=== PATIENT | male | born 1940 | race Caucasian/White ===

== ENCOUNTER 2020-08-07 09:13 | Outpatient (CLI) | payer MEDICARE, OTHER | END 2020-08-07 09:14 | disposition home or self-care (01) | LOC: DI 09:13 | PROVIDERS: ATTEND Internal Medicine | DX: I35.8 Other nonrheumatic aortic valve disorders (principal); I51.7 Cardiomegaly | CPT/HCPCS: 93306 ==

== ENCOUNTER 2021-04-23 18:37 | Outpatient (CLI) | payer MEDICARE, OTHER | END 2021-04-23 18:38 | disposition critical access hospital (66) | LOC: EMS 18:37 | DX: R10.9 Unspecified abdominal pain (principal); R11.2 Nausea with vomiting, unspecified; R61 Generalized hyperhidrosis | CPT/HCPCS: A0425; A0427 ==

== ENCOUNTER 2021-04-23 18:58 | Observation (INO) | payer MEDICARE, OTHER ==
--- NOTE | 2021-04-23 19:09 | ED Physician Documentation ---
PD HPI ABD PAIN - Stated complaint Stated Complaint: ABD PAIN, N/V - History obtained from History obtained from: Patient - History of Present Illness Timing - onset: Today (this morning at 7 am, abrupt onset RUQ abd pain, associated with nausea and episodic vomiting throuth the day. Less urine output and it seemedd dark to him.) Timing - duration: Days (1) Timing - details: Abrupt onset, Still present Quality: Cramping, Aching, Pain Location: RUQ, Epigastric Radiation: No: Chest, Lower back, Right flank Improved by: No: Vomiting Worsened by: Eating, Palpation. No: Breathing Associated symptoms: Nausea, Vomiting. No: Fever, Diarrhea, Constipation, Dysuria (but having hesitancy with urination) Similar symptoms before: Has not had sx before Recently seen: Not recently seen Review of Systems Constitutional: denies: Fever, Chills Nose: denies: Rhinorrhea / runny nose, Congestion Throat: denies: Sore throat Respiratory: denies: Cough GI: reports: Abdominal Pain (just today), Nausea, Vomiting. denies: Constipation, Diarrhea : reports: Hesitancy Skin: denies: Rash, Lesions Musculoskeletal: denies: Neck pain, Back pain Neurologic: reports: Generalized weakness. denies: Focal weakness, Near syncope, Altered mental status Psychiatric: denies: Anxiety PD PAST MEDICAL HISTORY - Past Medical History Cardiovascular: None (denies HTN, with BP usually 120-130 systlic. ) Respiratory: None Neuro: None Endocrine/Autoimmune: None - Allergies Allergies/Adverse Reactions: Allergies Allergy/AdvReac Type Severity Reaction Status Date / Time No Known Drug Allergies Allergy Verified 04/23/21 19:09 PD ED PE NORMAL - Vitals Vital signs reviewed: Yes - General General: Alert and oriented X 3, Well developed/nourished, Other (appears in pain right upper abd. ) - HEENT HEENT: PERRL (minimally icteric. ), Pharynx benign - Neck Neck: Supple, no meningeal sign, No adenopathy - Cardiac Cardiac: RRR, No murmur - Respiratory Respiratory: Clear bilaterally, Other (no chestwall tenderness.) - Abdomen Abdomen: Non distended, No organomegaly, Other (He is moderately tender with some guarding in the right upper quadrant. There is no percussion or rebound tenderness. Bowel sounds are diminished. The lower abdomen has a bit of full ness in the suprapubic area but no tender.). No: Normal bowel sounds (diminished) - Male Male : Deferred - Rectal Rectal: Deferred - Back Back: No CVA TTP - Derm Derm: Normal color, Warm and dry - Extremities Extremities: No tenderness to palpate, Normal ROM s pain, No edema, No calf tenderness / cord - Neuro Neuro: Alert and oriented X 3, No motor deficit, Normal speech Results - Vitals Vitals: Vital Signs - 24 hr 04/23/21 04/23/21 04/23/21 19:02 20:24 21:00 Temperature 36.0 C L Heart Rate 83 83 78 Respiratory 20 18 18 Rate Blood Pressure 207/75 H 190/96 H 210/109 H O2 Saturation 98 95 97 04/23/21 22:30 Temperature Heart Rate 81 Respiratory 18 Rate Blood Pressure 209/124 H O2 Saturation 96 Oxygen O2 Source Room air - Labs Labs: Laboratory Tests 04/23/21 04/23/21 04/23/21 19:24 19:24 19:30 WBC 7.8 RBC 4.96 Hgb 15.3 Hct 45.9 MCV 92.5 MCH 30.8 MCHC 33.3 RDW 13.3 Plt Count 154 MPV 9.5 Neut # (Auto) 6.9 H Lymph # (Auto) 0.6 L Bland # (Auto) 0.3 Eos # (Auto) 0.0 Baso # (Auto) 0.0 Absolute Nucleated RBC 0.00 Nucleated RBC % 0.0 Sodium 133 L Potassium 4.2 Chloride 95 L Carbon Dioxide 27 Anion Gap 11.0 BUN 17 Creatinine 1.1 Estimated GFR (MDRD) 64 L Glucose 239 H Calcium 9.0 Total Bilirubin 3.3 H AST 373 H ALT 332 H Alkaline Phosphatase 204 H Total Protein 7.7 Albumin 4.4 Globulin 3.3 Albumin/Globulin Ratio 1.3 Lipase 93 H Urine Color YELLOW Urine Clarity CLEAR Urine pH 7.0 Ur Specific [place] 1.025 Urine Protein 100 H Urine Glucose (UA) 250 H Urine Ketones 40 H Urine Occult Blood SMALL H Urine Nitrite NEGATIVE Urine Bilirubin NEGATIVE Urine Urobilinogen 0.2 (NORMAL) Ur Leukocyte Esterase NEGATIVE Urine RBC 6-10 H Urine WBC 0-3 Ur Squamous Epith Cells NONE SEEN Urine Bacteria None Seen Ur Microscopic Review INDICATED Urine Culture Comments NOT INDICATED - Rads (name of study) abd U/S Radiology: Prelim report reviewed (distended GB. CBD with normal size. Concern for poorly seem area near fundus of GB, suggested other imaging. ), See rad report abd CT Radiology: Prelim report reviewed (No masses. Corroborates distended GB with stone vs sludge seen, normal CBD.), See rad report PD MEDICAL DECISION MAKING - ED course Complexity details: reviewed results (No obvious ductal dilatation. There is distention of the gallbladder with some sludge or stone near the neck. Is elevated LFTs and lipase.), re-evaluated patient (pain improved with IV meds. BP remained eleveated but he states no history of HTN and BP typical 120-130 systolic, so I would allow BP to be high for now. ), considered differential (RUQ abd pain onset abrupt this AM. Seems likely hepatobiliary or consider pancreatic. He also complained of not getting urine out today, but is not having pain suprapubic. ), d/w patient, d/w marketing operations consultant (Talked with Dr. Boateng, who agreed to have patient in hospital for further care. ) ED course: Patient states he was unable to give a urine sample and was starting to feel bladder fullness. Bladder scanner showed a large amount so Grace catheter was placed with 700 mL out. This did not improve or affect his right upper quadrant pain and is still feeling tender there. Departure - Departure Disposition: ED Place in Observation Clinical Impression: RUQ abdominal pain, Elevated LFTs, Enlarged gallbladder, Acute urinary retention Nausea and vomiting Qualifiers: Vomiting type: bilious vomiting Qualified Code(s): R11.14 - Bilious vomiting Condition: Stable Record reviewed to determine appropriate education?: Yes Discharge Date/Time: 04/24/21 01:38
[2021-04-23] MEDS ORDERED: SODIUM CHLORIDE 0.9% 1,000 ML IV STA ×2 (19:14)
[2021-04-23] MEDS ORDERED: KETOROLAC 15 MG/ML VIAL IVP STA (19:14)
[2021-04-23] MEDS ORDERED: FAMOTIDINE 20 MG/2 ML VIAL IVP STA (19:15)
[2021-04-23 19:29] LABS: BASOPHILS % (AUTO) 0.3 %; HCT - HEMATOCRIT 45.9 % (42.0-52.0); HGB - HEMOGLOBIN 15.3 g/dL (14.0-18.0); LYMPHOCYTES # (AUTO) 0.6 10^3/uL (1.5-3.5); MEAN CORPUSCULAR HEMOGLOBIN 30.8 pg (27.0-31.0); MEAN CORPUSCULAR HGB CONC 33.3 g/dL (32.0-36.0); MEAN CORPUSCULAR VOLUME 92.5 fL (80.0-94.0); MEAN PLATELET VOLUME 9.5 fL (7.4-11.4); MONOCYTES # (AUTO) 0.3 10^3/uL (0.0-1.0); MONOCYTES % (AUTO) 3.8 %; NEUTROPHILS # (AUTO) 6.9 10^3/uL (1.5-6.6); NEUTROPHILS % (AUTO) 88.5 %; PLT - PLATELET COUNT 154 10^3/uL (130-450); RED BLOOD COUNT 4.96 10^6/uL (4.70-6.10); RED CELL DISTRIBUTION WIDTH 13.3 % (12.0-15.0); WHITE BLOOD COUNT 7.8 x10^3/uL (4.8-10.8)
[2021-04-23 19:38] LABS: BILIRUBIN,URINE NEGATIVE (NEGATIVE); GLUCOSE, URINE (UA) 250 mg/dL (NEGATIVE); KETONES,URINE (UA) 40 mg/dL (NEGATIVE); LEUKOCYTE ESTERASE, URINE NEGATIVE (NEGATIVE); NITRITE,URINE NEGATIVE (NEGATIVE); OCCULT BLOOD,URINE SMALL (NEGATIVE); PROTEIN,URINE 100 mg/dL (NEGATIVE); UROBILINOGEN,URINE 0.2 (NORMAL) E.U./dL (NORMAL)
[2021-04-23 19:40] LABS: CLARITY,URINE CLEAR (CLEAR)
[2021-04-23 19:44] LABS: WBC,URINE 0-3 /HPF (0-3)
[2021-04-23 19:45] LABS: BACTERIA,URINE None Seen /HPF (None Seen); SQUAMOUS EPITHELIAL CELL,UR NONE SEEN (<= Few)
[2021-04-23 19:47] LABS: ALBUMIN 4.4 g/dL (3.2-5.5); ALBUMIN/GLOBULIN RATIO 1.3 (1.0-2.2); BILIRUBIN,TOTAL 3.3 mg/dL (0.2-1.0); CREATININE 1.1 mg/dL (0.6-1.2); POTASSIUM 4.2 mmol/L (3.5-5.0); TOTAL PROTEIN 7.7 g/dL (6.7-8.2)
--- NOTE | 2021-04-23 21:55 | Ultrasound Report ---
PROCEDURE: Abdomen Limited INDICATIONS: RUQ abd pain and vomiting since AM TECHNIQUE: Real-time focused scanning was performed of the right upper quadrant, with image documentation. COMPARISON: None. FINDINGS: The liver appears normal in overall size. There is coarse sonographic echotexture of the visualized l iver suggestive of fatty infiltration but evaluation is limited due to patient's limited ability to b reath-hold. The gallbladder is distended with a lobulated slightly hyperechoic nongravity dependent filling defec t in the fundus measuring approximately 3.5 x 3.7 cm. No definite internal vascularity is demonstrate d within this region on color Doppler interrogation. No gallbladder wall thickening or shadowing gall stones. No pericholecystic fluid. No definite intra or extra hepatic biliary ductal dilatation. The distal common bile duct measures ap proximately 0.4 cm but is not well visualized. The pancreas was not well seen. Right kidney measures 11.3 cm. No hydronephrosis. There is a right renal cyst measuring up to 4.6 x 4 .7 x 4.2 cm. IMPRESSION: 1. Lobulated nongravity dependent filling defect within the gallbladder fundus without definite inter nal vascularity on color Doppler interrogation. The findings likely represent loculated biliary sludg e. However, an intraluminal gallbladder mass such as from gallbladder carcinoma cannot be excluded. C onsider follow-up evaluation with a contrast-enhanced MRI. 2. No definite evidence of cholecystitis. 3. No biliary ductal dilatation identified. Reviewed by: Alli Del Toro MD on 04/23/2021 9:53 PM PDT Approved by: Alli Del Toro MD on 04/23/2021 9:53 PM PDT Station ID: [id number]
[2021-04-23] MEDS ORDERED: IOVERSOL 320 100 ML VIAL IVP ONE ×2 (22:53→23:42)
[2021-04-24] MEDS ORDERED: ONDANSETRON 4 MG/2 ML VIAL IVP STA (00:57)
[2021-04-24] MEDS ORDERED: HYDROmorphone 1 MG/ML CARPUJECT IVP STA (00:57)
[2021-04-24] MEDS ORDERED: ACETAMINOPHEN 325 MG TABLET PO PRN (01:06)
[2021-04-24] MEDS ORDERED: ONDANSETRON ODT 4 MG TABLET TL PRN (01:06)
[2021-04-24] MEDS ORDERED: ONDANSETRON 4 MG/2 ML VIAL IVP PRN (01:06)
[2021-04-24] MEDS ORDERED: HYDROcod/ACETAM 5/325 MG TABLET PO PRN (01:06)
[2021-04-24] MEDS ORDERED: HYDROmorphone 0.5 MG/0.5 ML SYRINGE IVP PRN (01:06)
[2021-04-24] MEDS ORDERED: PROCHLORPERAZINE 10 MG/2 ML VIAL IVP PRN (01:06)
[2021-04-24] MEDS ORDERED: ceFAZolin 2 GM in SODIUM CHLORIDE 0.9% MINIBAG 100 ML IV STA (01:15)
[2021-04-24] MEDS ORDERED: hydrALAZINE 10 MG TABLET PO PRN (01:21)
[2021-04-24 02:23] LABS: B. PARAPERTUSSIS- RESP PCR PAN NOT DETECTED; B. PERTUSSIS- RESP PCR PANEL NOT DETECTED; C. PNEUMONIAE- RESP PCR PANEL NOT DETECTED; CORONAVIRUS 229E-RESP PCR NOT DETECTED; CORONAVIRUS HKU1-RESP PCR NOT DETECTED; CORONAVIRUS NL63-RESP PCR NOT DETECTED; CORONAVIRUS OC43-RESP PCR NOT DETECTED; HUMAN METAPNEUMOVIRUS NOT DETECTED; INFLUENZA A- RESP PCR PANEL NOT DETECTED; INFLUENZA B - RESP PCR PANEL NOT DETECTED; M. PNEUMONIAE- RESP PCR PANEL NOT DETECTED; PARAINFLUENZA VIRUS 1 NOT DETECTED; PARAINFLUENZA VIRUS 2 NOT DETECTED; PARAINFLUENZA VIRUS 3 NOT DETECTED; PARAINFLUENZA VIRUS 4 NOT DETECTED; RHINOVIRUS/ENTEROVIRUS NOT DETECTED; RSV- RESP PCR PANEL NOT DETECTED; SARS-CoV-2 -RESP PCR PANEL NOT DETECTED
[2021-04-24] MEDS: SODIUM CHLORIDE FLUSH 0.9% 10 ML SYRINGE IVP PRN ×2 (02:35→03:12)
[2021-04-24] MEDS: D5.45NS W/20 MEQ KCL 1,000 ML IV SCH ×2 (02:36→14:22)
[2021-04-24] MEDS: METOPROLOL TARTRATE 50 MG TABLET PO SCH ×2 (02:48→08:49)
[2021-04-24] MEDS: metroNIDAZOLE 500 MG/100 ML 500 MG/100 ML BAG IV SCH ×2 (03:12→10:06)
[2021-04-24 06:11] LABS: ALBUMIN 3.7 g/dL (3.2-5.5); ALBUMIN/GLOBULIN RATIO 1.2 (1.0-2.2); BILIRUBIN,TOTAL 2.6 mg/dL (0.2-1.0); CALCIUM 8.3 mg/dL (8.5-10.3); CREATININE 0.9 mg/dL (0.6-1.2); POTASSIUM 3.8 mmol/L (3.5-5.0); TOTAL PROTEIN 6.7 g/dL (6.7-8.2)
--- NOTE | 2021-04-24 07:53 | CT Report ---
PROCEDURE: Abdomen/Pelvis W INDICATIONS: right upper abd pain today; elevated LFTs CONTRAST: IV CONTRAST: Optiray 320 ml: 100 PO CONTRAST: *NO PO CONTRAST TECHNIQUE: After the administration of intravenous contrast, 5 mm thick sections acquired from the diaphragms to the symphysis. 5 mm thick coronal and sagittal reformats were acquired. For radiation dose reducti on, the following was used: automated exposure control, adjustment of mA and/or kV according to yung ent size. COMPARISON: Right upper quadrant ultrasound dated 04/23/2021. FINDINGS: Image quality: Excellent. ABDOMEN: Lung bases: Lung bases are clear. Heart size is normal. Solid organs: Liver and spleen are normal in size and enhancement. Gallbladder is distended and con tains sludge. No gallbladder wall thickening. Biliary system is non dilated. Pancreas enhances norm ally. No adrenal nodules. Kidneys demonstrate normal size and enhancement, without hydronephrosis. Peritoneum and bowel: Bowel loops demonstrate normal wall thickness and caliber. No free fluid or a ir. Moderate fecal debris in the cecum. Nodes and vessels: No retroperitoneal or mesenteric adenopathy by size criteria. Aorta and inferior vena cava are normal in size. Miscellaneous: No ventral hernias. PELVIS: Genitourinary: Markedly enlarged, edematous appearing prostate. A Grace catheter is present in the b ladder. Diffuse bladder wall thickening. Miscellaneous: No inguinal hernias or adenopathy. Bones: No suspicious bony lesions. No vertebral body compression fractures. IMPRESSION: 1. Distended gallbladder filled with sludge. 2. Markedly enlarged, edematous prostate. Grace catheter decompresses the bladder, which has bladder wall thickening. 3. Moderate cecal fecal debris. A preliminary report with the above findings was provided at the time of the study by [facility]. Reviewed by: Tucker Gudino MD on 04/24/2021 6:52 AM KAL Approved by: Tucker Gudino MD on 04/24/2021 6:52 AM KAL Station ID: [id number]
[2021-04-24] MEDS ORDERED: FAMOTIDINE 20 MG TABLET PO SCH (09:00)
[2021-04-24] MEDS ORDERED: SODIUM CHLORIDE FLUSH 0.9% 10 ML SYRINGE IVP SCH (09:00)
[2021-04-24] MEDS ORDERED: INSULIN ASPART 300 UNIT/3 ML PEN SUBQ SCH (12:00)
[2021-04-24] MEDS ORDERED: INSULIN REGULAR HUMAN 300 UNIT/3 ML VIAL SUBQ SCH (12:00)
[2021-04-24 12:20] VITALS: BP 111/59
--- NOTE | 2021-04-24 14:14 | HISTORY & PHYSICAL EXAMINATION ---
Chief Complaint - Chief Complaint Chief Complaint: Abdominal pain and nausea/ vomiting yesterday. History of Present Illness - Admitted From Admitted From:: ED - History Obtained From History obtained from: pt Exam Limitations: none - History of Present Illness HPI Comment/Other: Admitted 130 am 04/24/2021 after a [employer] of very significant epigastric pain and nausea/ vomiting. Feeling much improved now. Pain gone and nausea gone. Urine was dark. Back to normal color. History - Past Medical History Cardiovascular: reports: None (denies HTN, with BP usually 120-130 systlic. ) Respiratory: reports: None Neuro: reports: None Endocrine/Autoimmune: reports: None GI: reports: None : reports: Retention, Nocturia Psych: reports: None Musculoskeletal: reports: Osteoarthritis Derm: reports: None Other Past Medical History: Pericarditis x2 (30 years ago). Meds/Allgy - Allergies Allergies/Adverse Reactions: Allergies Allergy/AdvReac Type Severity Reaction Status Date / Time No Known Drug Allergies Allergy Verified 04/23/21 19:09 Review of Systems - Other Findings Other Findings: 10 pt ros as above otherwise unremarkable Exam - Vital Signs Reviewed Vital Signs: Yes Vital Signs: Vital Signs x48h Temp Pulse Resp BP BP Pulse Ox 04/24/21 12:19 36.7 C 57 L 16 111/59 L 96 04/24/21 11:07 37 C 59 L 17 115/55 L 96 04/24/21 08:49 126/67 04/24/21 07:48 36.7 C 53 L 18 121/59 L 94 - Physical Exam General Appearance: positive: Alert Eyes Bilateral: positive: PERRL, EOMI, No scleral icterus ENT: positive: No signs of dehydration Neck: positive: Trachea midline Respiratory: positive: No respiratory distress, Breath sounds nml Cardiovascular: positive: Regular rate & rhythm Abdomen: positive: Non-tender, No distention Neurologic/Psychiatric: positive: Oriented x3 Conclusion/Plan - Problem List (1) Elevated LFTs Conclusion/Plan: Clinically he had significant gallbladder pain and has passed common bile duct stones/ sludge. He is much improved. Plan d/c home and follow up surgery office. Low fat diet encouraged. (2) Nausea and vomiting Qualifiers: Vomiting type: bilious vomiting Qualified Code(s): R11.14 - Bilious vomiting - Lab Results Fish Bones: 04/23/21 19:24 04/24/21 05:33
--- NOTE | 2021-04-24 14:20 | Discharge Plan ---
Discharge Plan Problem Reviewed?: Yes Disposition: Home, Self Care Condition: Good Diet: Regular (low fat) Activity Restrictions: No Restrictions Shower Restrictions: No Driving Restrictions: No Plan of Treatment: Follow up with the surgery office DR Grady Boateng [phone] Assessment: Significant biliary pain and passed common bile duct stones/ sludge No Smoking: If you smoke, Please STOP! Call for help. Follow-up with: John Erazo MD [Primary Care Provider] -
[2021-04-24] MEDS ORDERED: METOPROLOL TARTRATE 25 MG TABLET PO SCH (21:00)
[2021-04-25] MEDS ORDERED: TAMSULOSIN 0.4 MG CAPSULE PO SCH (09:00)
== END 2021-04-24 16:24 | disposition home or self-care (01) ==
LOC: EDUNIT# → ED 18:58 → SUPCPDRO 18:58 → MS2 04-24 01:06
PROVIDERS: ADMIT Surgery; ATTEND Surgery
DX: K80.50 Calculus of bile duct without cholangitis or cholecystitis without obstruction (principal); R79.89 Other specified abnormal findings of blood chemistry; R10.11 Right upper quadrant pain; R33.9 Retention of urine, unspecified; Z20.822 Contact with and (suspected) exposure to COVID-19
CPT/HCPCS: 36415; 51702; 51798; 74177; 76705; 80053; 81001; 83690; 85025; 87631; 96365; 96366; 96367; 96368; 96375; 99284; 99285; A9270; G0378; J1170; Q9967; 0202U; 81003; 87086

== ENCOUNTER 2021-06-01 16:54 | Observation (INO) | payer MEDICARE, OTHER ==
[2021-06-01 17:25] LABS: BASOPHILS % (AUTO) 0.2 %; EOSINOPHILS # (AUTO) 0.2 10^3/uL (0.0-0.7); EOSINOPHILS % (AUTO) 1.7 %; HCT - HEMATOCRIT 45.5 % (42.0-52.0); LYMPHOCYTES # (AUTO) 0.4 10^3/uL (1.5-3.5); LYMPHOCYTES % (AUTO) 4.2 %; MEAN CORPUSCULAR HEMOGLOBIN 30.5 pg (27.0-31.0); MEAN CORPUSCULAR VOLUME 92.7 fL (80.0-94.0); MEAN PLATELET VOLUME 9.3 fL (7.4-11.4); MONOCYTES # (AUTO) 0.3 10^3/uL (0.0-1.0); MONOCYTES % (AUTO) 3.1 %; NEUTROPHILS # (AUTO) 7.9 10^3/uL (1.5-6.6); NEUTROPHILS % (AUTO) 90.6 %; PLT - PLATELET COUNT 175 10^3/uL (130-450); RED BLOOD COUNT 4.91 10^6/uL (4.70-6.10); RED CELL DISTRIBUTION WIDTH 13.1 % (12.0-15.0); WHITE BLOOD COUNT 8.7 x10^3/uL (4.8-10.8)
[2021-06-01 17:37] LABS: ALBUMIN 3.9 g/dL (3.2-5.5); ALBUMIN/GLOBULIN RATIO 1.2 (1.0-2.2); BILIRUBIN,TOTAL 1.2 mg/dL (0.2-1.0); CALCIUM 8.8 mg/dL (8.5-10.3); CREATININE 1.2 mg/dL (0.6-1.2); POTASSIUM 4.4 mmol/L (3.5-5.0); TOTAL PROTEIN 7.2 g/dL (6.7-8.2)
[2021-06-01] MEDS ORDERED: ONDANSETRON 4 MG/2 ML VIAL IVP STA (18:07)
[2021-06-01] MEDS ORDERED: SODIUM CHLORIDE 0.9% 1,000 ML IV STA (18:07)
--- NOTE | 2021-06-01 18:12 | ED Physician Documentation ---
PD HPI ABD PAIN - Stated complaint Stated Complaint: GI ISSUES - Chief complaint Chief Complaint: Abd Pain - History obtained from History obtained from: Patient - History of Present Illness Timing - onset: Today Timing - duration: Hours (6) Timing - details: Gradual onset Pain level max: 3 Pain level now: 2 Quality: Aching, Pain Location: RUQ, Epigastric Radiation: No: Chest, , Lower back, Left flank, Left shoulder, Right flank, Right shoulder, Upper back Improved by: Vomiting Worsened by: Eating Associated symptoms: Nausea, Vomiting. No: Fever, Hematemesis, Diarrhea, Constipation - Additional information Additional information: Patient is scheduled for a cholecystectomy in the morning. He states that he called the surgeon's office when he began vomiting and they recommended he come here to be placed in observation overnight for surgery in the morning. Review of Systems Constitutional: denies: Fever, Chills Throat: denies: Sore throat Cardiac: denies: Chest pain / pressure Respiratory: denies: Cough GI: reports: Nausea, Vomiting. denies: Abdominal Pain, Diarrhea Skin: denies: Rash Musculoskeletal: denies: Neck pain, Back pain Neurologic: denies: Headache PD PAST MEDICAL HISTORY - Past Medical History Cardiovascular: None Respiratory: None Neuro: None Endocrine/Autoimmune: None GI: None : Retention, Nocturia Psych: None Musculoskeletal: Osteoarthritis Derm: None - Past Surgical History General: Colonoscopy Derm: Skin cancer surgery - Present Medications Home Medications: Ambulatory Orders Medication Instructions Recorded Confirmed Atorvastatin Calcium 40 mg PO DAILY 06/01/21 06/01/21 Dulaglutide [Trulicity] 1.5 mg SQ OAW 06/01/21 06/01/21 Insulin Glargine [Lantus Solostar] 22 unit SQ QPM 06/01/21 06/01/21 Ramipril [Altace] 2.5 mg PO DAILY 06/01/21 06/01/21 Tamsulosin HCl [Flomax] 0.4 mg PO DAILY 06/01/21 06/01/21 - Allergies Allergies/Adverse Reactions: Allergies Allergy/AdvReac Type Severity Reaction Status Date / Time No Known Drug Allergies Allergy Verified 06/01/21 17:03 - Social History Does the pt smoke?: No Smoking Status: Never smoker PD ED PE NORMAL - Vitals Vital signs reviewed: Yes - General General: Alert and oriented X 3, No acute distress - HEENT HEENT: Moist mucous membranes - Neck Neck: Supple, no meningeal sign - Cardiac Cardiac: RRR - Respiratory Respiratory: No respiratory distress, Clear bilaterally - Abdomen Abdomen: Soft, Non tender, Non distended - Derm Derm: Warm and dry - Neuro Neuro: Alert and oriented X 3 - Psych Psych: Normal mood, Normal affect Results - Vitals Vitals: Vital Signs - 24 hr 06/01/21 06/01/21 06/01/21 17:03 18:02 19:06 Temperature 36.5 C 36.4 C L 36.4 C L Heart Rate 100 98 98 Respiratory 16 16 16 Rate Blood Pressure 113/64 146/85 H 146/85 H O2 Saturation 95 97 97 Oxygen O2 Source Room air - Labs Labs: Laboratory Tests 06/01/21 06/01/21 06/01/21 17:19 17:19 18:30 WBC 8.7 RBC 4.91 Hgb 15.0 Hct 45.5 MCV 92.7 MCH 30.5 MCHC 33.0 RDW 13.1 Plt Count 175 MPV 9.3 Neut # (Auto) 7.9 H Lymph # (Auto) 0.4 L [place] # (Auto) 0.3 Eos # (Auto) 0.2 Baso # (Auto) 0.0 Absolute Nucleated RBC 0.00 Nucleated RBC % 0.0 Sodium 138 Potassium 4.4 Chloride 100 L Carbon Dioxide 27 Anion Gap 11.0 BUN 21 H Creatinine 1.2 Estimated GFR (MDRD) 58 L Glucose 200 H Calcium 8.8 Total Bilirubin 1.2 H AST 18 ALT 21 Alkaline Phosphatase 89 Total Protein 7.2 Albumin 3.9 Globulin 3.3 Albumin/Globulin Ratio 1.2 Lipase 38 Nasal Adenovirus (PCR) NOT DETECTED Nasal B. parapertussis DNA (PCR) NOT DETECTED Nasal Coronavir 229E PCR NOT DETECTED Nasal Coronavir HKU1 PCR NOT DETECTED Nasal Coronavir NL63 PCR NOT DETECTED Nasal Coronavir OC43 PCR NOT DETECTED Nasal Enterovir/Rhinovir PCR NOT DETECTED Nasal Influenza B PCR NOT DETECTED Nasal Influenza A PCR NOT DETECTED Nasal Parainfluen 1 PCR NOT DETECTED Nasal Parainfluen 2 PCR NOT DETECTED Nasal Parainfluen 3 PCR NOT DETECTED Nasal Parainfluen 4 PCR NOT DETECTED Nasal RSV (PCR) NOT DETECTED Nasal B.pertussis DNA PCR NOT DETECTED Nasal C.pneumoniae (PCR) NOT DETECTED [place] Human Metapneumo PCR NOT DETECTED Nasal M.pneumoniae (PCR) NOT DETECTED Nasal SARS-CoV-2 (PCR) NOT DETECTED PD MEDICAL DECISION MAKING - ED course Complexity details: reviewed results, re-evaluated patient, considered differential, d/w patient, d/w family, d/w technical consultant ED course: Patient with vomiting today. Scheduled for cholecystectomy in the morning. Discussed the case with Dr. Mendoza, general surgery on-call who will place in observation and plan for OR in the morning. We will hold antibiotics as there is no evidence of cholecystitis at this time. This document was made in part using voice recognition software. While efforts are made to proofread this document, sound alike and grammatical errors may occur. Departure - Departure Disposition: ED Place in Observation Clinical Impression: Vomiting Qualifiers: Vomiting type: unspecified Vomiting Intractability: unspecified Nausea presence: with nausea Qualified Code(s): R11.2 - Nausea with vomiting, unspecif ied Cholelithiasis Qualifiers: Cholelithiasis location: gallbladder Cholecystitis presence: without cholecystitis Biliary obstruction: without biliary obstruction Qualified Code(s): K80.20 - Calculus of gallbladder without cholecystitis without obstruction Condition: Stable Discharge Date/Time: 06/01/21 19:52
--- NOTE | 2021-06-01 18:53 | SURGERY HX AND PHYSICAL(T) ---
Surgical History & Physical - Chief Complaint/HPI Chief Complaint: N/V, RUQ and right scapular pain History of Present Illness: 80 yo male scheduled for lap cholecystectomy tomorrow morning with Dr Boateng. Patient was seen by Dr Boateng for symptomatic cholelithiasis on April 23 and admitted briefly and scheduled for lap cholecystectomy on June 02. Over the past five weeks he has had episodes of RUQ pain with dry heaves about once a week. The current episode started yesterday. He has had no fever or jaundice. He has not eaten in 24 hours. No chest pain or irregular HR. - PMH/PSH/Social Hx Does the pt have a hx of MRSA?: No Neurological History: None Eyes, Ears, Nose, Throat: None Cardiovascular: Other (Hx of pericarditis 30 years ago) Respiratory: Sleep apnea Skin: None Endocrine/Autoimmune: Type 2 diabetes Gastrointestinal: None Urinary: Retention, Nocturia Musculoskeletal: Osteoarthritis Blood Disorders: None Psychiatric: None General: Colonoscopy Dermatologic: Skin cancer surgery Smoking Status: Never smoker Frequency: Occasional Does the pt have substance abuse?: No - Family Hx Family Hx: Unremarkable - Home Meds and Allergies Home Medications: Atorvastatin Calcium 40 mg PO DAILY 06/01/21 Dulaglutide [Trulicity] 1.5 mg SQ OAW 06/01/21 Insulin Glargine [Lantus Solostar] 22 unit SQ QPM 06/01/21 Ramipril [Altace] 2.5 mg PO DAILY 06/01/21 Tamsulosin HCl [Flomax] 0.4 mg PO DAILY 06/01/21 Allergies/Adverse Reactions: Allergies Allergy/AdvReac Type Severity Reaction Status Date / Time No Known Drug Allergies Allergy Verified 06/01/21 17:03 - Review of Systems Constitutional: No: Fatigue, Fever, Chills, Weakness Gastrointestinal: Nausea, Vomiting, Abdominal pain - Vital Signs Heart Rate: 98 Blood Pressure: 146/85 Temperature: 36.4 C Respiratory Rate: 16 O2 Saturation: 97 Weight (kg): 92 kg Height: 1.8 m - Physical Exam General Appearance: positive: No acute distress Eyes Bilatera: positive: Normal inspection ENT: positive: ENT inspection nml Neck: positive: Nml inspection Respiratory: positive: Chest non-tender, No respiratory distress Cardiovascular: positive: Regular rate & rhythm Peripheral Pulses: positive: 2+ Abdomen: positive: Non-tender, Other (Mildly positive West's sign at subcostal anterior axillary line) Skin: positive: Color nml Extremities: positive: Non-tender, No pedal edema Neurologic/Psychiatric: positive: Oriented x3 Comments/Other: CBC show normal WBC, normal H/H Glucose 200, T Bili 1.2 - Patient Review Patient Review: Problems were reviewed with the patient during this visit. Medications were reviewed with the patient during this visit. Allergies were reviewed this patient during this visit. Pertinent Tests Reviewed: All pertitent test for this patient were reviewed. - Assessment & Plan Assessment and Plan: Assessment/Plan: 1- Acute cholecystitis, cholelithiasis with worsening N/V requiring hospitalization. Lap cholecystectomy scheduled in AM with Dr Boateng. Will keep NPO except sips until midnight, Debbie Dutton. Discussed with Dr Boateng. 2. Insulin Dependent diabetes mellitus 3. Hx pericarditis 30 years ago
[2021-06-01] MEDS ORDERED: SODIUM CHLORIDE FLUSH 0.9% 10 ML SYRINGE IVP PRN (19:07)
[2021-06-01] MEDS ORDERED: ONDANSETRON ODT 4 MG TABLET TL PRN (19:07)
[2021-06-01] MEDS ORDERED: PIPERACILLIN/TAZOBACTAM 3.375 GM in SODIUM CHLORIDE 0.9% MINIBAG 100 ML IV STA (19:13)
--- NOTE | 2021-06-01 19:24 | CONSULTATION NOTE ---
Referring Provider Name of Referring Provider:: Neville Mendoza Consult Date: 06/01/21 Chief Complaint - Chief Complaint Chief Complaint: Medical Management History of Present Illness - Admitted From Admitted From:: [facility] ED - History Obtained From Records Reviewed: yes History obtained from: patient - History of Present Illness HPI Comment/Other: Patient is an 80-year-old male who presented to the ED with significant nausea and vomiting today. He had been admitted at [facility] on 04/23/21-04/24/21 With nausea and vomiting for which he was diagnosed with cholelithiasis. He is scheduled for a lap kandi tomorrow 06/02/21 at 7:30 AM. However because of his significant symptoms today he called Dr. Boateng nurse who advised him to go to the ED. He was admitted by Dr. Kiran Mendoza with plan for surgery by Dr. Boateng tomorrow morning. The hospitalist service was consulted for medical management of his comorbidities. His past medical history significant for osteoarthritis, gout, diabetes mellitus on insulin, hyperlipidemia, history of mood heart murmur, history of pericarditis 30 years ago, GERD At bedside he is resting comfortably. He reports his pain is 1 out of 10 scale. He has some pain under the right shoulder blade and in the right upper quadrant. It is exquisitely tender to palpation. He denies chest pain, dyspnea or fever. He reported chills earlier in the day. The rest of his history is unremarkable. History - Past Medical History Cardiovascular: reports: Hypertension, High cholesterol, Murmur (known), Other (Hx of pericarditis 30 years ago) Respiratory: reports: Sleep apnea Neuro: reports: None Endocrine/Autoimmune: reports: Type 2 diabetes GI: reports: None : reports: Benign prostate hypertrophy, Retention, Nocturia HEENT: reports: None Psych: reports: None Musculoskeletal: reports: Osteoarthritis, Gout Derm: reports: None MRSA Hx?: No - Past Surgical History General: reports: Colonoscopy Derm: reports: Skin cancer surgery - Family & Social History Family History Comment/Other: His father at age 67 from leukemia. His mother at age 83 from pancreatic cancer. His brother passed a way at age 65 from multiple myeloma. His eldest son in an accident at work. His daughter at age 43 from suicide. He has one living son. Living arrangement: At home Living Situation: With spouse/s.o. Social History Notes: He lives at home with his . He is very active and independent of activities of daily living. He does not consume tobacco products or recreational substances. He has about 2 drinks daily. - POLST Patient has POLST: No POLST Status: Full Code Meds/Allgy - Home Medications Home Medications: Ambulatory Orders Medication Instructions Recorded Confirmed Atorvastatin Calcium 40 mg PO DAILY 06/01/21 06/01/21 Dulaglutide [Trulicity] 1.5 mg SQ OAW 06/01/21 06/01/21 Insulin Glargine [Lantus Solostar] 22 unit SQ QPM 06/01/21 06/01/21 Ramipril [Altace] 2.5 mg PO DAILY 06/01/21 06/01/21 Tamsulosin HCl [Flomax] 0.4 mg PO DAILY 06/01/21 06/01/21 - Allergies Allergies/Adverse Reactions: Allergies Allergy/AdvReac Type Severity Reaction Status Date / Time No Known Drug Allergies Allergy Verified 06/01/21 17:03 Review of Systems - Constitutional Constitutional: reports: Chills. denies: Fatigue, Fever - Eyes Eyes: denies: Pain - Ears, Nose & Throat Ears, Nose & Throat: denies: Ear pain, Sore throat - Cardiovascular Cariovascular: denies: Chest pain, Edema, Lightheadedness, Syncope - Respiratory Respiratory: denies: Cough, Sputum production, Wheezing, SOB at rest, SOB with exertion - Gastrointestinal Gastrointestinal: reports: Abdominal pain, Nausea, Vomiting, Reflux/heartburn. denies: Abdominal distention, Constipation, Diarrhea - Genitourinary Genitourinary: denies: Dysuria, Frequency, Urgency, Hematuria - Musculoskeletal Musculoskeletal: denies: Muscle pain, Back pain, Muscle aches, Stiffness, Muscle weakness - Integumentary Integumentary: denies: Rash, Pruritis, Lesions - Neurological Neurological: denies: General weakness, Focal weakness, Headache, Dizziness - Psychiatric Psychiatric: denies: Depression, Anxiety - Endocrine Endocrine: denies: Polyuria, Polydypsia - Hematologic/Lymphatic Hematologic/Lymphatic: denies: Anemia, Bruising, Petechiae Exam - Vital Signs Vital Signs: Vital Signs x48h Temp Pulse Resp BP Pulse Ox 06/01/21 19:06 36.4 C L 98 16 146/85 H 97 06/01/21 18:02 36.4 C L 98 16 146/85 H 97 06/01/21 17:03 36.5 C 100 16 113/64 95 - Physical Exam General Appearance: positive: No acute distress, Alert Eyes Bilateral: positive: PERRL, EOMI ENT: positive: No signs of dehydration Neck: positive: No JVD, Trachea midline Respiratory: positive: Chest non-tender, No respiratory distress, Breath sounds nml. negative: Wheezes, Rales, Rhonchi Cardiovascular: positive: Regular rate & rhythm, Systolic murmur Abdomen: positive: Nml bowel sounds, Tenderness (RUQ), Guarding, Rebound Skin: positive: No rash, Warm, Dry Extremities: positive: Non-tender, Full ROM, Nml appearance, No pedal edema Neurologic/Psychiatric: positive: Oriented x3, Mood/affect nml Conclusion/Plan - Diagnosis Diagnosis: Acute Cholecystitis. Diabetes Mellitus. Heart Murmur. Hx of Pericarditis. Hypertension. Hyperlipidemia. BPH - Plan Plan: 1.Acute Cholecystitis: Clear liquids.N.p.o. after midnight. Patient is scheduled for a cholecystectomy by Dr. Boateng at 730am on 06/02/21 2.Diabetes Mellitus On Lantus 22 units subcu every afternoon. Sliding scale insulin. Accu-Cheks every 6 hours while n.p.o. and before every meal and at bedtime when eating. 3.Heart Murmur: This is known. Last echocardiogram on 08/07/2020 showed a normal left ventricular size. Mild concentric left ventricular hypertrophy. Overall left ventricular systolic function was normal with an ejection fraction of 60 to 65%. There was impaired relaxation consistent with grade 1 diastolic dysfunction. No regional wall motion abnormality. The right ventricle was normal in size and function. Moderate to severe increase in left atrial volume index. Moderate right atrial enlargement. Aortic valve was trileaflet. The aortic valve leaflets were moderately calcified. There was moderate aortic stenosis. No mitral stenosis. Mild mitral regurgitation. There was no pericardial effusion. No pleural effusion. No mass or thrombus. The intra-atrial septum appeared normal. 4.Hx of Pericarditis: There was no pericardial effusion on echocardiogram done on 08/07/2020. EKG done today 06/01/2021 showed normal sinus rhythm. 5.Hypertension: Stable. Will resume ramipril 2.5 mg p.o. daily when appropriate to do so. 6.Hyperlipidemia: Will resume patient's atorvastatin 40 mg p.o. daily when appropriate to do so. 7.BPH On tamsulosin 0.4 mg capsule p.o. daily. 8.Pre-op eval Patient has a higher than average risk of serious complication and any complication for this planned laparoscopic cholecystectomy His risk vs average risk is 3.2% vs 2.2 % and 3.9% vs 2.8% of serious complication and any complication respectively. 2D echo done 10 months ago showed moderate aortic stenosis. Patient is medically optimized. Predicted length of stay is 1 day. - Lab Results Fish Bones: 06/01/21 17:19 06/01/21 17:19
[2021-06-01 19:34] LABS: B. PARAPERTUSSIS- RESP PCR PAN NOT DETECTED; B. PERTUSSIS- RESP PCR PANEL NOT DETECTED; C. PNEUMONIAE- RESP PCR PANEL NOT DETECTED; CORONAVIRUS 229E-RESP PCR NOT DETECTED; CORONAVIRUS HKU1-RESP PCR NOT DETECTED; CORONAVIRUS NL63-RESP PCR NOT DETECTED; CORONAVIRUS OC43-RESP PCR NOT DETECTED; HUMAN METAPNEUMOVIRUS NOT DETECTED; INFLUENZA A- RESP PCR PANEL NOT DETECTED; INFLUENZA B - RESP PCR PANEL NOT DETECTED; M. PNEUMONIAE- RESP PCR PANEL NOT DETECTED; PARAINFLUENZA VIRUS 1 NOT DETECTED; PARAINFLUENZA VIRUS 2 NOT DETECTED; PARAINFLUENZA VIRUS 3 NOT DETECTED; PARAINFLUENZA VIRUS 4 NOT DETECTED; RHINOVIRUS/ENTEROVIRUS NOT DETECTED; RSV- RESP PCR PANEL NOT DETECTED; SARS-CoV-2 -RESP PCR PANEL NOT DETECTED
[2021-06-01] MEDS ORDERED: SODIUM CHLORIDE 0.9% 1,000 ML IV SCH (20:00)
[2021-06-01] MEDS: INSULIN REGULAR HUMAN 300 UNIT/3 ML VIAL SUBQ SCH ×2 (20:22→23:41)
[2021-06-01] MEDS ORDERED: INSULIN GLARGINE 300 UNIT/3 ML PEN SUBQ SCH (21:00)
[2021-06-01 21:48] LABS: BILIRUBIN,URINE NEGATIVE (NEGATIVE); GLUCOSE, URINE (UA) NEGATIVE (NEGATIVE); KETONES,URINE (UA) NEGATIVE (NEGATIVE); LEUKOCYTE ESTERASE, URINE NEGATIVE (NEGATIVE); NITRITE,URINE NEGATIVE (NEGATIVE); OCCULT BLOOD,URINE NEGATIVE (NEGATIVE); PH,URINE 5.5 PH (5.0-7.5); PROTEIN,URINE NEGATIVE (NEGATIVE); UROBILINOGEN,URINE 0.2 (NORMAL) E.U./dL (NORMAL)
[2021-06-01 21:49] LABS: CLARITY,URINE CLEAR (CLEAR)
[2021-06-01] MEDS: SODIUM CHLORIDE FLUSH 0.9% 10 ML SYRINGE IVP SCH (23:28)
[2021-06-02] MEDS: INSULIN REGULAR HUMAN 300 UNIT/3 ML VIAL SUBQ SCH (05:52)
[2021-06-02] MEDS ORDERED: DEXTROSE 5%-0.45% NACL 1,000 ML IV SCH (07:00)
[2021-06-02] MEDS ORDERED: BUPIVACAINE 0.25% PF 30 ML VIAL ONE (07:15)
[2021-06-02] MEDS ORDERED: LIDOCAINE-MPF 2% 5 ML VIAL ONE (07:24)
[2021-06-02] MEDS ORDERED: DEXAMETHASONE 4 MG/ML VIAL ONE (07:24)
[2021-06-02] MEDS ORDERED: ONDANSETRON 4 MG/2 ML VIAL ONE (07:24)
[2021-06-02] MEDS ORDERED: ROCURONIUM 50 MG/5 ML VIAL ONE ×2 (07:24→08:19)
[2021-06-02] MEDS ORDERED: PROPOFOL 200 MG/20 ML VIAL IVP ONE (07:24)
[2021-06-02] MEDS ORDERED: fentaNYL 100 MCG/2 ML VIAL ONE ×2 (07:25→09:11)
--- NOTE | 2021-06-02 07:27 | PROVIDER PROGRESS NOTE ---
Subjective - Prog Note Date Prog Note Date: 06/02/21 - Subjective Pt reports feeling: Improved (Bad gallbladder attack yesterday. Epigastric pain better this am) Objective - Vital Signs/Intake & Output Reviewed Vital Signs: Yes Vital Signs: Vital Signs x48h Temp Pulse Resp BP Pulse Ox 06/02/21 03:54 36.7 C 71 16 149/69 H 94 06/01/21 23:32 37 C 74 16 139/66 H 96 Intake & Output: Intake & Output 05/30/21 05/31/21 06/01/21 06/02/21 23:59 23:59 23:59 23:59 Intake Total 345 1000 Output Total 250 Balance 95 1000 - Objective General Appearance: positive: No acute distress, Alert Eyes Bilateral: positive: Normal inspection, PERRL, EOMI, No scleral icterus Respiratory: positive: No respiratory distress Cardiovascular: positive: Regular rate & rhythm Abdomen: positive: No distention, Tenderness Neurologic/Psychiatric: positive: Oriented x3 - Lab Results Fish Bones: 06/01/21 17:19 06/01/21 17:19 Other Labs: Lab Results x24hrs 06/02/21 06/01/21 06/01/21 Range/Units 05:40 23:35 21:45 WBC (4.8-10.8) x10^3/uL RBC (4.70-6.10) 10^6/uL Hgb (14.0-18.0) g/dL Hct (42.0-52.0) % MCV (80.0-94.0) fL MCH (27.0-31.0) pg MCHC (32.0-36.0) g/dL RDW (12.0-15.0) % Plt Count (130-450) 10^3/uL MPV (7.4-11.4) fL Neut # (Auto) (1.5-6.6) 10^3/uL Lymph # (Auto) (1.5-3.5) 10^3/uL Ballard # (Auto) (0.0-1.0) 10^3/uL Eos # (Auto) (0.0-0.7) 10^3/uL Baso # (Auto) (0.0-0.1) 10^3/uL Absolute Nucleated RBC x10^3/uL Nucleated RBC % /100WBC Sodium (135-145) mmol/L Potassium (3.5-5.0) mmol/L Chloride (101-111) mmol/L Carbon Dioxide (21-32) mmol/L Anion Gap (6-13) BUN (6-20) mg/dL Creatinine (0.6-1.2) mg/dL Estimated GFR (MDRD) (>89) Glucose (70-100) mg/dL POC Whole Bld Glucose 71 148 H (70 - 100) mg/dL Calcium (8.5-10.3) mg/dL Total Bilirubin (0.2-1.0) mg/dL AST (10-42) IU/L ALT (10-60) IU/L Alkaline Phosphatase (42-121) IU/L Total Protein (6.7-8.2) g/dL Albumin (3.2-5.5) g/dL Globulin (2.1-4.2) g/dL Albumin/Globulin Ratio (1.0-2.2) Lipase (22-51) U/L Urine Color YELLOW Urine Clarity CLEAR (CLEAR) Urine pH 5.5 (5.0-7.5) PH Ur Specific [place] >=1.030 H (1.002-1.030) Urine Protein NEGATIVE (NEGATIVE) mg/dL Urine Glucose (UA) NEGATIVE (NEGATIVE) mg/dL Urine Ketones NEGATIVE (NEGATIVE) mg/dL Urine Occult Blood NEGATIVE (NEGATIVE) Urine Nitrite NEGATIVE (NEGATIVE) Urine Bilirubin NEGATIVE (NEGATIVE) Urine Urobilinogen 0.2 (NORMAL) (NORMAL) E.U./dL Ur Leukocyte Esterase NEGATIVE (NEGATIVE) Ur Microscopic Review NOT INDICATED Urine Culture Comments NOT INDICATED Nasal Adenovirus (PCR) Nasal B. parapertussis DNA (PCR) Nasal Coronavir 229E PCR Nasal Coronavir HKU1 PCR Nasal Coronavir NL63 PCR Nasal Coronavir OC43 PCR Nasal Enterovir/Rhinovir PCR Nasal Influenza B PCR Nasal Influenza A PCR Nasal Parainfluen 1 PCR Nasal Parainfluen 2 PCR Nasal Parainfluen 3 PCR Nasal Parainfluen 4 PCR Nasal RSV (PCR) Nasal B.pertussis DNA PCR Nasal C.pneumoniae (PCR) Sachin Human Metapneumo PCR Nasal M.pneumoniae (PCR) Nasal SARS-CoV-2 (PCR) 08/10/21 08/10/21 08/10/21 Range/Units 18:30 17:19 17:19 WBC 8.7 (4.8-10.8) x10^3/uL RBC 4.91 (4.70-6.10) 10^6/uL Hgb 15.0 (14.0-18.0) g/dL Hct 45.5 (42.0-52.0) % MCV 92.7 (80.0-94.0) fL MCH 30.5 (27.0-31.0) pg MCHC 33.0 (32.0-36.0) g/dL RDW 13.1 (12.0-15.0) % Plt Count 175 (130-450) 10^3/uL MPV 9.3 (7.4-11.4) fL Neut # (Auto) 7.9 H (1.5-6.6) 10^3/uL Lymph # (Auto) 0.4 L (1.5-3.5) 10^3/uL Ballard # (Auto) 0.3 (0.0-1.0) 10^3/uL Eos # (Auto) 0.2 (0.0-0.7) 10^3/uL Baso # (Auto) 0.0 (0.0-0.1) 10^3/uL Absolute Nucleated RBC 0.00 x10^3/uL Nucleated RBC % 0.0 /100WBC Sodium 138 (135-145) mmol/L Potassium 4.4 (3.5-5.0) mmol/L Chloride 100 L (101-111) mmol/L Carbon Dioxide 27 (21-32) mmol/L Anion Gap 11.0 (6-13) BUN 21 H (6-20) mg/dL Creatinine 1.2 (0.6-1.2) mg/dL Estimated GFR (MDRD) 58 L (>89) Glucose 200 H (70-100) mg/dL POC Whole Bld Glucose (70 - 100) mg/dL Calcium 8.8 (8.5-10.3) mg/dL Total Bilirubin 1.2 H (0.2-1.0) mg/dL AST 18 (10-42) IU/L ALT 21 (10-60) IU/L Alkaline Phosphatase 89 (42-121) IU/L Total Protein 7.2 (6.7-8.2) g/dL Albumin 3.9 (3.2-5.5) g/dL Globulin 3.3 (2.1-4.2) g/dL Albumin/Globulin Ratio 1.2 (1.0-2.2) Lipase 38 (22-51) U/L Urine Color Urine Clarity (CLEAR) Urine pH (5.0-7.5) PH Ur Specific [place] (1.002-1.030) Urine Protein (NEGATIVE) mg/dL Urine Glucose (UA) (NEGATIVE) mg/dL Urine Ketones (NEGATIVE) mg/dL Urine Occult Blood (NEGATIVE) Urine Nitrite (NEGATIVE) Urine Bilirubin (NEGATIVE) Urine Urobilinogen (NORMAL) E.U./dL Ur Leukocyte Esterase (NEGATIVE) Ur Microscopic Review Urine Culture Comments Nasal Adenovirus (PCR) NOT DETECTED Nasal B. parapertussis DNA (PCR) NOT DETECTED Nasal Coronavir 229E PCR NOT DETECTED Nasal Coronavir HKU1 PCR NOT DETECTED Nasal Coronavir NL63 PCR NOT DETECTED Nasal Coronavir OC43 PCR NOT DETECTED Nasal Enterovir/Rhinovir PCR NOT DETECTED Nasal Influenza B PCR NOT DETECTED Nasal Influenza A PCR NOT DETECTED Nasal Parainfluen 1 PCR NOT DETECTED Nasal Parainfluen 2 PCR NOT DETECTED Nasal Parainfluen 3 PCR NOT DETECTED Nasal Parainfluen 4 PCR NOT DETECTED Nasal RSV (PCR) NOT DETECTED Nasal B.pertussis DNA PCR NOT DETECTED Nasal C.pneumoniae (PCR) NOT DETECTED Sachin Human Metapneumo PCR NOT DETECTED Nasal M.pneumoniae (PCR) NOT DETECTED Nasal SARS-CoV-2 (PCR) NOT DETECTED - Diagnostic Imaging Diagnostic Imaging Results: positive: Read independently Assessment/Plan - Problem List (1) RUQ abdominal pain Impression: cholecystitis. plan lap kandi. parq held and consent obtained
[2021-06-02] MEDS ORDERED: MIDAZOLAM 2 MG/2 ML VIAL ONE (07:30)
[2021-06-02] MEDS ORDERED: BUPIVACAINE 0.25% PF 30 ML VIAL SUBQ ONE (08:12)
[2021-06-02] MEDS ORDERED: TAMSULOSIN 0.4 MG CAPSULE PO SCH ×2 (09:00→10:00)
[2021-06-02] MEDS ORDERED: SUGAMMADEX 200 MG/2 ML VIAL IVP ONE (09:11)
[2021-06-02] MEDS ORDERED: SODIUM CHLORIDE 0.9% 10 ML VIAL IVP ONE (09:29)
[2021-06-02] MEDS ORDERED: DEXTROSE 5% 1,000 ML IV ONE (09:36)
--- NOTE | 2021-06-02 09:46 | OPERATIVE REPORT ---
Operative Report - General Admit Date: 06/01/21 Procedure Date: 06/02/21 Planned Procedure: laparoscopic cholecystectomy Pre-Op Diagnosis: cholecystitis Procedure Performed: laparoscopic cholecystectomy Post Op Diagnosis: acute on chronic cholecystitis - Procedure Note Primary Surgeon: oren faust md Secondary Surgeon: haider Anesthesia Technique: General ET tube, Local Pathology: gallbladder Estimated Blood Loss (mL): 20 Drain/Tube Type: Other (none) Indications: cholecystitis Findings: acute on chronic cholecystitiss normal appearing liver and small cystic duct Complications: none - Other Other Information/Narrative: The patient was properly identified, brought to the operating room and placed in supine position. Sequential compression devices were placed. General endotracheal anesthesia was induced. The patient was prepped and draped in a sterile fashion and given preoperative antibiotics. Local anesthetic was given to incision areas. An incision was made in the periumbilical area. Dissection proceeded down to fascia. The fascia was incised lifted upwards and abdomen entered with a Veress needle. CO2 was insufflated to a pressure of 15. An 11 mm trocar followed by a 30 degree scope was placed. There was no evidence of injury from Veress needle or trocar placement. Under direct vision 2 5 mm trochars were placed in the right upper quadrant and an 11 mm trocar was placed in the epigastrium. Body of the gallbladder was retracted anterior. Lateral attachments were partially taken down further mobilizing the gallbladder more anterior and away from the duodenum. The infundibulum of the gallbladder was then retracted right lateral and caudad. With minimal use of cautery a large bare cystic plate area or window was carefully created. The cystic duct was inspected from right lateral and left lateral positions. [] The cystic duct was then clipped at the gallbladder and 3 times slightly proximal and sharply divided. The cystic artery was clipped at the gallbladder and then 2 times slightly proximal and sharply divided. The gallbladder was mobilized off from the bed of the liver with hook cautery. The gallbladder was placed in Endo Catch bag and brought out through the epigastric trocar site. Hemostasis was assured. Trochars were removed under direct vision. Fascia at the larger trocar sites was closed with [id number] are running 0 Vicryl suture. Subcutaneous tissue was irrigated and skin closed with interrupted 4-0 Monocryl. Dressings were applied. Patient tolerated the procedure well was awakened and brought to recovery in good condition.
[2021-06-02] MEDS ORDERED: ONDANSETRON 4 MG/2 ML VIAL IVP PRN ×2 (09:49→09:55)
[2021-06-02] MEDS ORDERED: MORPHINE 2 MG/ML CARPUJECT IVP PRN (09:55)
[2021-06-02] MEDS ORDERED: METOCLOPRAMIDE 10 MG/2 ML VIAL IVP PRN (09:55)
[2021-06-02] MEDS ORDERED: ATROPINE ABBOJECT 1 MG/10 ML SYRINGE IVP PRN (09:55)
[2021-06-02] MEDS ORDERED: ePHEDrine 50 MG/ML VIAL IVP PRN (09:55)
[2021-06-02] MEDS ORDERED: HYDROmorphone 0.5 MG/0.5 ML SYRINGE IVP PRN (09:55)
[2021-06-02] MEDS ORDERED: fentaNYL 100 MCG/2 ML VIAL IVP PRN (09:55)
[2021-06-02] MEDS ORDERED: NALOXONE 0.4 MG/ML VIAL IVP PRN (09:55)
[2021-06-02] MEDS ORDERED: LACTATED RINGERS 1,000 ML IV SCH (10:00)
[2021-06-02] MEDS ORDERED: SODIUM CHLORIDE 0.9% 1,000 ML IV SCH (11:00)
[2021-06-02] MEDS: SODIUM CHLORIDE FLUSH 0.9% 10 ML SYRINGE IVP SCH (11:12)
[2021-06-02] MEDS ORDERED: BENZOCAINE/MENTHOL LOZENGE MM PRN (11:12)
[2021-06-02] MEDS ORDERED: INSULIN ASPART 300 UNIT/3 ML PEN SUBQ SCH (12:00)
[2021-06-02] MEDS ORDERED: INSULIN REGULAR HUMAN 300 UNIT/3 ML VIAL SUBQ SCH (12:00)
[2021-06-02 12:52] LABS: ESTIMATED AVERAGE GLUCOSE 186 mg/dL (70-100); HEMOGLOBIN A1c% 8.1 % (4.27-6.07)
[2021-06-02 13:21] VITALS: BP 143/67
--- NOTE | 2021-06-08 08:26 | PROVIDER PROGRESS NOTE ---
Subjective - General Admit Date: 06/01/21 Procedure Date: 06/02/21 Post Op Days: 6 - Review of Systems Wound/Incisions: positive: Dressing dry and intact General: positive: No symptoms HEENT: positive: No symptoms Pulmonary: positive: No symptoms Gastrointestinal: positive: No symptoms Genitourinary: positive: No symptoms Psychiatric: positive: No symptoms Objective - Lab Results Lab Results: 06/01/21 17:19 06/01/21 17:19 Impression/Plan - Problem List Problem List: postop lap kandi for acute on chronic cholecystitis. doing well. d/c home
--- NOTE | 2021-06-08 08:29 | Discharge Plan ---
Discharge Plan Problem Reviewed?: Yes Disposition: Home, Self Care Condition: Good Prescriptions: HYDROcod/ACETAM 5/325 [Nordman 5/325] 1 each PO Q6H PRN #25 tablet PRN Reason: Pain Ondansetron Odt [Zofran Odt] 4 mg PO Q6H PRN #15 tablet PRN Reason: Nausea / Vomiting Diet: Regular Activity Restrictions: No Restrictions Shower Restrictions: No Driving Restrictions: No Instruction Topics: Ondansetron tablets, Acetaminophen Hydrocodone tablets or capsules, Cholecystectomy Laparoscopic [facility] Health Concerns: none Plan of Treatment: doing well after cholecystectomy for acute on chronic cholecystitis No Smoking: If you smoke, Please STOP! Call for help. Follow-up with: Eliseo Boateng MD [Primary Care Provider] -
== END 2021-06-02 14:37 | disposition home or self-care (01) ==
LOC: ED 16:54 → UNDOADMOB 19:07 → MS2 19:07 → UNDODISOB 06-02 14:37
PROVIDERS: ADMIT Surgery; ATTEND Surgery
PROC: 0FT44ZZ Resection of Gallbladder, Percutaneous Endoscopic Approach (ICD-10-PCS; principal; 2021-06-01)
DX: C23 Malignant neoplasm of gallbladder (principal); K81.2 Acute cholecystitis with chronic cholecystitis; Z20.822 Contact with and (suspected) exposure to COVID-19; E11.9 Type 2 diabetes mellitus without complications; Z79.4 Long term (current) use of insulin; K21.9 Gastro-esophageal reflux disease without esophagitis; M10.9 Gout, unspecified; E78.5 Hyperlipidemia, unspecified; I10 Essential (primary) hypertension; N40.1 Benign prostatic hyperplasia with lower urinary tract symptoms; R33.8 Other retention of urine; R35.1 Nocturia; I35.0 Nonrheumatic aortic (valve) stenosis; G47.30 Sleep apnea, unspecified
CPT/HCPCS: 36415; 47562; 80053; 81003; 83036; 83690; 85025; 87631; 93005; 96365; 96375; 99284; 99285; A9270; G0378; J1815; 0202U; 81001; 87086

== ENCOUNTER 2021-07-09 08:00 | Outpatient (CLI) | payer MEDICARE, OTHER ==
--- NOTE | 2021-07-09 11:32 | XRAY Report ---
PROCEDURE: Hand 3 View RT INDICATIONS: INJURY TO RIGHT WRIST, HAND AND FINGERS TECHNIQUE: 3 views of the hand(s) acquired. COMPARISON: None FINDINGS: Bones: Severe osteoarthritic changes are noted throughout interphalangeal joints. Moderate to severe osteophytic changes also noted throughout rest of right hand and wrist particularly at first MCP rocio nt. No gross bony erosive changes. No fractures or dislocations. No suspicious bony lesions. Soft tissues: No suspicious soft tissue calcifications. IMPRESSION: Moderate to severe osteophytic changes throughout right-hand more prominent involving interphalangeal joints as above. No acute fracture or dislocation. No definite bony erosive changes. Reviewed by: Yaakov Stover MD on 07/09/2021 11:31 AM PDT Approved by: Yaakov Stover MD on 07/09/2021 11:31 AM PDT Station ID: [id number]
== END 2021-07-09 23:59 | disposition home or self-care (01) ==
LOC: DI.S 08:00
PROVIDERS: ATTEND Emergency Medicine
DX: S69.91XA Unspecified injury of right wrist, hand and finger(s), initial encounter (principal); M19.041 Primary osteoarthritis, right hand

== ENCOUNTER 2022-07-08 14:16 | Outpatient (CLI) | payer MEDICARE, OTHER ==
--- NOTE | 2022-07-08 15:26 | Ultrasound Report ---
PROCEDURE: Chest INDICATIONS: RIGHT SUPRACLAVICULAR MASS TECHNIQUE: Real-time scanning was performed of the right supraclavicular region. COMPARISON: None. FINDINGS: Subcutaneous mass in the right supraclavicular region measuring 5.5 x 3.7 x 1.5 cm. The mass is isoec hoic and appears circumscribed. No internal vascularity is appreciated. The patient denies pain. IMPRESSION: Right supraclavicular isoechoic mass measuring 5.5 cm. 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 If the lesion grows in size or becomes painful, biopsy would be recommended for tissue diagnosis. Reviewed by: Leonidas Dorantes MD on 07/08/2022 3:24 PM PDT Approved by: Leonidas Dorantes MD on 07/08/2022 3:24 PM PDT Station ID: [id number]
== END 2022-07-08 14:17 | disposition home or self-care (01) ==
LOC: DI 14:16
PROVIDERS: ATTEND Nurse Practitioner Family
DX: R22.2 Localized swelling, mass and lump, trunk (principal)

== ENCOUNTER 2023-04-01 08:00 | Outpatient (CLI) | payer MEDICARE, OTHER ==
--- NOTE | 2023-04-01 17:17 | XRAY Report ---
PROCEDURE: Chest 2 View X-Ray INDICATIONS: CHEST CONGESTION TECHNIQUE: 2 views of the chest were acquired. COMPARISON: None. FINDINGS: Surgical changes and devices: None. Lungs and pleura: No pleural effusions or pneumothorax. Lungs are clear. Mediastinum: Mediastinal contours appear normal. Heart size is normal. Bones and chest wall: No suspicious bony lesions. Overlying soft tissues appear unremarkable. IMPRESSION: No acute cardiopulmonary process. Reviewed by: Liam Beebe MD on 04/01/2023 4:15 PM AKDT Approved by: Liam Beebe MD on 04/01/2023 4:15 PM AKDT Station ID: [id number]
== END 2023-04-01 23:59 | disposition home or self-care (01) ==
LOC: DI.S 08:00
PROVIDERS: ATTEND Physician Assistant Medical
DX: R09.89 Other specified symptoms and signs involving the circulatory and respiratory systems (principal)

== ENCOUNTER 2023-07-06 14:39 | Outpatient (CLI) | payer MEDICARE, OTHER | END 2023-07-06 14:40 | disposition home or self-care (01) | LOC: DI 14:39 | PROVIDERS: ATTEND Internal Medicine | DX: I35.0 Nonrheumatic aortic (valve) stenosis (principal); I51.7 Cardiomegaly; I34.81 Nonrheumatic mitral (valve) annulus calcification; I77.810 Thoracic aortic ectasia | CPT/HCPCS: 93306 ==